=== PATIENT | male | born 1945 | race Caucasian/White ===

== ENCOUNTER → 2016-12-14 | Day surgery (SDC) | payer MEDICARE, BC ==
[~2016-12-14] MED LIST: ALBUAER3 INH; AMIO200T PO; APIX5TAB PO; ASPI1TAB69 PO; BACT800T5 PO; BRIM0.155 EACH EYE; CIPR-9 PO; EFFE150C PO; FINA5TAB2 PO; FURO20TA PO; GABA600T PO; LACT10SO PO; LACTATED RINGER'S 1000 ML INJ 1,000 ML ONE; LISI40TA PO; METF500T4 PO; MULT400T PO; PHEN0.4T PO; POTACRY9 PO; PRED10 PO; SIMV20TA PO; TAMS5CAP PO; VENL150T PO; VESI5TAB PO; [UNRECOGNIZED DRUG - CODE] EACH EYE; [UNRECOGNIZED DRUG - OTHER] PO
== END | disposition home or self-care (01) ==
LOC: ESDC 12:08
PROVIDERS: ATTEND Internal Medicine Gastroenterology
DX: Z86.010 Personal history of colon polyps (principal); Z01.810 Encounter for preprocedural cardiovascular examination
CPT/HCPCS: 93005; G0463; 99211; J7120

== ENCOUNTER 2018-02-25 16:08 | Emergency (ER) | payer MEDICARE, BC ==
[~2018-02-25] VITALS: Ht 177.8 cm; Wt 181.0 kg
[~2018-02-25 16:08] MED LIST changes: +AMLO5TAB2 PO; -ASPI1TAB69 PO; -BACT800T5 PO; -CIPR-9 PO; -FURO20TA PO; -GABA600T PO; +HYDR-3801 PO; -LACT10SO PO; -LACTATED RINGER'S 1000 ML INJ 1,000 ML ONE; -METF500T4 PO; -MULT400T PO; -PHEN0.4T PO; -POTACRY9 PO; -VENL150T PO; -VESI5TAB PO; +VESI5TAB2 PO; -[UNRECOGNIZED DRUG - CODE] EACH EYE; -[UNRECOGNIZED DRUG - OTHER] PO
[2018-02-25 16:12] VITALS: BP 188/80; PULSE 87; RESP 16; TEMP 98.3; O2SAT 95
[2018-02-25] MEDS ORDERED: [UNRECOGNIZED DRUG - CODE] IV (16:45)
[2018-02-25] MEDS ORDERED: HYDR-3801 PO (16:45)
[2018-02-25] MEDS ORDERED: ALBUAER3 INH (16:45)
--- NOTE | 2018-02-25 16:55 | PD ---
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 He has had an IV placed each day for the past 3 days. He needs 1 week of IV antibiotics for UTI for resistant infection. No other complaints. History Past Medical History Narrative Medical Prostate cancer, urinary retention Social History Alcohol Use: Yes (RARELY) Tobacco Use: No Allergies-Medications (Allergen,Severity, Reaction): Coded Allergies: No Known Allergies (Verified Adverse Reaction, Unknown, 02/25/18) Reported Meds & Prescriptions Reported Meds & Active Scripts Active Vesicare (Solifenacin) 5 Mg Tab 5 Mg PO DAILY Flomax (Tamsulosin HCl) 0.4 Mg Cap 0.4 Mg PO BID Simvastatin 20 Mg Tab 20 Mg PO DAILY Lisinopril 40 Mg Tab 40 Mg PO DAILY Effexor XR 24 HR (Venlafaxine HCl) 150 Mg Cap 150 Mg PO DAILY Reported Ceftazidime Inj (Ceftazidime/Dextrose) 1 Gm/50 Ml Bagp 1 Gm IV BID Hydralazine (Hydralazine HCl) 100 Mg Tab 10 Mg PO BID Take with meals Proair Hfa 8.5 GM Inh (Albuterol Sulfate) 90 Mcg/Act Aer 1 Puff INH Q4H PRN 108 mcg/actuation Finasteride 5 Mg Tab 5 Mg PO DAILY Do not crush. Eliquis (Apixaban) 5 Mg Tab 5 Mg PO BID Amlodipine (Amlodipine Besylate) 5 Mg Tab 5 Mg PO DAILY Brimonidine Opth Drops (Brimonidine Tartrate) 0.15% Soln 1 Drop EACH EYE TID Amiodarone (Amiodarone HCl) 200 Mg Tab 200 Mg PO BID Prednisone 10 Mg Tab 10 Mg PO DAILY Review of Systems Except as stated in HPI: all other systems reviewed are Neg Physical Exam Narrative GENERAL: Well-appearing 9-year-old man, no acute distress per SKIN: Warm and dry. CARDIOVASCULAR: Warm and well perfused. RESPIRATORY: Normal rate and effort. MUSCULOSKELETAL: IV and left arms leaking. NEUROLOGICAL: Awake and alert. No gross deficits. Data Data Last Documented VS Vital Signs Date Time Temp Pulse Resp B/P (MAP) Pulse Ox O2 Delivery O2 Flow Rate FiO2 02/25/18 16:46 Room Air 02/25/18 16:12 98.3 87 16 188/80 (116) 95 Orders Orders Vascular Access Team Consult/P PRN (02/25/18 16:30) Vascular Poc Ultrasound (02/25/18 ) MDM Medical Decision Making Medical Screen Exam Complete: Yes Emergency Medical Condition: Yes Differential Diagnosis UTI, IV, other Narrative Course Medical decision making Severe man needs IV access for patient antibiotic therapy. He only has 3 more days. Vascular access was able to place a good peripheral IV that he can use. Diagnosis Primary Impression: UTI (urinary tract infection) Patient Instructions: General Instructions Additional Instructions: continue antibiotics as planned. Return to the ER for any difficulties. Med/Other Pt SpecificInfo: No Change to Meds Disposition: 01 DISCHARGE HOME Condition: Stable Segundo David MD Feb 25, 2018 16:55
== END 2018-02-25 18:00 | disposition home or self-care (01) ==
LOC: NEPD 16:08
DX: N39.0 Urinary tract infection, site not specified (principal)

== ENCOUNTER → 2018-03-21 | Day surgery (SDC) | payer MEDICARE, BC ==
[~2018-03-21] VITALS: Ht 177.8 cm; Wt 177.7 kg
[~2018-03-21] MED LIST changes: +CEPH-460 PO; +CHLORHEXIDINE GLUCONATE 2 % 1 PACK (2 CLOTHS) TOPICAL PRN; +DEXAMETHASONE SOD PHOS 4 MG/ML VIAL IV ONE; +DO NOT ADM ANY ANTICOAGULANT DRUGS PRN; +GENTAMICIN SULFATE 80 MG/2 ML VIAL ONE; +GLYCOPYRROLATE 1 MG/5 ML SYRINGE IV PUSH ONE; +LACTATED RINGER'S 1000 ML IV PRN; +LIDOCAINE HCL 1% PF 5 ML SYRINGE OTHER ONE; +METOPROLOL TARTRATE 25 MG TAB PO PRN; +NEOSTIGMINE 5 MG/5 ML SYRINGE IV PUSH ONE; +ONDANSETRON HCL 4 MG/2 ML VIAL IV ONE; +ONDANSETRON ODT 4 MG TAB PO PRN; +PERC5TAB12 PO; +PHENYLEPH/NS 1000 MCG/10 ML SYR IV ONE; +POVIDONE IODINE 5% (ANTISEPSIS KIT) 4 APPLICATIONS EACH NARE PRN; +PROPOFOL 200 MG/20 ML AMP IV ONE; +ROCURONIUM INJ 50 MG/5 ML SYRINGE IV PUSH ONE; +SODIUM CHLORID 0.9% 500 ML IV PRN; +VASOPRESSIN 20 UNITS/ML VIAL ONE; -VESI5TAB2 PO; +ceFAZolin 2 GM/DEX PREMIX 50 ML IV SCH; +ePHEDrine/NS 25 MG/5 ML SYRINGE IV ONE; +fentaNYL CITRATE 250 MCG/5 ML AMP ONE; +methylPREDNISolone SOD SUCC 125 MG/2 ML VIAL ONE; +oxyCODONE/ACETAMINOPHEN 5 MG/325 MG TAB PO PRN
--- NOTE | 2018-03-21 08:07 | EKG ---
Date Performed: 03/21/2018 Time Performed: 07:52:46 PTAGE: 72 years EKG: Sinus rhythm BORDERLINE NONSPECIFIC INTRAVENTRICULAR CONDUCTION DELAY BORDERLINE ECG PREVIOUS TRACING : 02/17/2016 14.44 No significant change from previous tracing noted. DOCTOR: Andrea Reyes Interpretating Date/Time 03/21/2018 08:06:55
[2018-03-21 08:33] LABS: AUTOMATED NEUTROPHIL # 5.4 TH/MM3 (1.8-7.7); BASOPHIL # 0.1 TH/MM3 (0-0.2); BASOPHIL % 1.1 % (0.0-2.0); EOSINOPHIL # 0.2 TH/MM3 (0-0.4); EOSINOPHIL % 2.3 % (0.0-4.0); HEMATOCRIT 42.2 % (39.0-51.0); HEMOGLOBIN 13.8 GM/DL (13.0-17.0); LYMPH % 11.6 % (9.0-44.0); LYMPHOCYTE # 0.9 TH/MM3 (1.0-4.8); MEAN CELL VOLUME 85.2 FL (80.0-100.0); MEAN CORPUSCULAR HEMOGLOBIN 27.8 PG (27.0-34.0); MEAN CORPUSCULAR HGB CONC 32.7 % (32.0-36.0); MEAN PLATELET VOLUME 8.4 FL (7.0-11.0); MONO % 11.5 % (0.0-8.0); MONOCYTE # 0.8 TH/MM3 (0-0.9); NEUT % 73.5 % (16.0-70.0); PLATELET COUNT 209 TH/MM3 (150-450); RED BLOOD COUNT 4.96 MIL/MM3 (4.50-5.90); RED CELL DISTRIBUTION WIDTH 17.5 % (11.6-17.2); WHITE BLOOD COUNT 7.4 TH/MM3 (4.0-11.0)
--- NOTE | 2018-03-21 11:27 | PD.OP ---
Operative Report Date of Surgery: March 21, 2018 Preoperative Diagnosis: (1) Bladder outlet obstruction Postoperative Diagnosis: (1) Bladder outlet obstruction Procedure: Cystoscopy and transurethral resection of the prostate Anesthesia: General Surgeon: Oleg Herrera Maintenance Operator(s): None Operation and Findings: 72-year-old gentleman with history prostate cancer status post brachii therapy who recently developed urinary retention. Cystoscopic evaluation demonstrated obstructing prostatic tissue. Patient presents today to undergo cystoscopy and a transurethral resection of the prostate to relieve the bladder outlet obstruction. Operative procedure in detail: Patient was brought to the operating room suite and placed supine on the OR table. He was then placed under general anesthesia. He was then repositioned in the dorsolithotomy position and prepped and draped in normal sterile fashion. After appropriate timeout was undertaken I proceeded with cystoscopic evaluation utilizing the rigid cystoscope with the 20 [place]ian sheath and 30 lens. Once again the patient was noted to have bladder outlet obstruction secondary to obstructing prostatic tissue. There was also a calcification within the prostatic urethra which was dislodged by virtue of passing the cystoscope. I then exchanged the cystoscope for the resectoscope with a 24 [place]ian bipolar cutting Loop. Transurethral resection of obstructing prostatic tissue was then accomplished using normal saline as an irrigant. Care was taken to avoid any resection of prostatic tissue beyond the verumontanum. Both ureteral orifices were identified and care was taken to avoid any resection of tissue in vicinity of these orifices. Once the obstructing tissue was vaporized, the iliac evacuator was utilized and the resected tissue was sent off to pathology. Careful inspection fracture bleeding was made and none was noted. A 20 [place]ian 30 cc Mishra catheter was then easily placed and connected to gravity drainage with clear return. The patient tolerated the procedures without complications and was transferred to the PACU in satisfactory condition. Oleg Herrera MD March 21, 2018 11:27
[2018-03-21 13:50] VITALS: BP 144/61; PULSE 63; RESP 18; TEMP 97.7; O2SAT 94
== END | disposition home or self-care (01) ==
LOC: HSDC 07:24
PROVIDERS: ATTEND Urology
DX: N32.0 Bladder-neck obstruction (principal); N40.1 Benign prostatic hyperplasia with lower urinary tract symptoms; R35.0 Frequency of micturition; R33.9 Retention of urine, unspecified; Z87.440 Personal history of urinary (tract) infections; B35.1 Tinea unguium; L60.0 Ingrowing nail; I10 Essential (primary) hypertension; E11.9 Type 2 diabetes mellitus without complications; Z01.818 Encounter for other preprocedural examination; Z01.810 Encounter for preprocedural cardiovascular examination
CPT/HCPCS: 00914; 52630; 85025; 88305; 93005; J1100; J1580; J2370; J2405; J2710; J2930; J3010; J7120

== ENCOUNTER 2018-04-28 18:55 | Inpatient (IN) | END 2018-04-30 10:40 | disposition home or self-care (01) | LOC: N07 23:09 | PROVIDERS: ADMIT Internal Medicine; ATTEND Internal Medicine ==